=== PATIENT | male | born 1990 | race Two or more races ===

== ENCOUNTER 2024-07-28 19:51 | Emergency (ER) | payer SELFPAY ==
[2024-07-28] MEDS: Penicillin V Potassium 500 MG Tab PO ONE (20:26)
[2024-07-28] MEDS: Ketorolac 30 MG/ML SDV IM ONE (20:26)
== END 2024-07-28 20:41 | disposition home or self-care (01) ==
LOC: JD.ED 19:51
DX: K02.9 Dental caries, unspecified (principal)
CPT/HCPCS: 96372; 99282; A9270-GY; J1885